=== PATIENT | male | born 1990 | race Two or more races ===

== ENCOUNTER 2017-08-11 08:42 | Day surgery (SDC) | payer OTHER ==
[~2017-08-11 08:42] MED LIST: HYDROmorphone 2 MG/ML VIAL IV; IV RINGERS,LACTATED 1000ML 1,000 ML IV; LIDOCAINE 1% PF 2 ML VIAL. ID; MORPHINE SULFATE 4 MG/ML DISP.SYRIN. IV; ONDANSETRON PF 4 MG/2 ML VIAL. IV; PROCHLORPERAZINE 10 MG/2 ML VIAL. IV; ceFAZolin 2GM PREMIX 2 GM/50 ML BAG IV; fentaNYL PF VIAL 100 MCG/2 ML VIAL IV
[2017-08-11] MEDS: IV RINGERS,LACTATED 1000ML 1,000 ML IV (09:24)
[2017-08-11] MEDS ORDERED: LIDOCAINE 1% PF 5 ML VIAL. (09:45)
[2017-08-11] MEDS ORDERED: PROPOFOL 20 ML IV (09:45)
[2017-08-11] MEDS ORDERED: ONDANSETRON PF 4 MG/2 ML VIAL. (09:45)
[2017-08-11] MEDS ORDERED: DEXAMETHASONE SOD PHOS 20 MG/5 ML VIAL. (09:45)
[2017-08-11] MEDS ORDERED: FAMOTIDINE 20 MG/2 ML VIAL (09:45)
[2017-08-11] MEDS ORDERED: fentaNYL PF VIAL 100 MCG/2 ML VIAL (09:50)
[2017-08-11] MEDS ORDERED: MIDAZOLAM HCL/PF 2 MG/2 ML VIAL. (09:51)
[2017-08-11] MEDS ORDERED: PHENYLEPHRINE in 0.9% NACL PF 1 MG/10 ML SYRINGE. IV (10:42)
[2017-08-11] MEDS ORDERED: SEVOFLURANE 61 TO 120 MINUTES. IH (11:18)
[2017-08-11] MEDS: oxyCODONE/APAP 5/325 1 TAB TABLET PO (12:13)
== END 2017-08-11 12:43 | disposition home or self-care (01) ==
LOC: SURG 08:42
DX: N62 Hypertrophy of breast (principal); Z83.3 Family history of diabetes mellitus; Z82.49 Family history of ischemic heart disease and other diseases of the circulatory system; Z87.891 Personal history of nicotine dependence; Z79.899 Other long term (current) drug therapy
CPT/HCPCS: 19300; 88305; J0690; J1100; J2250; J2370; J2405; J2704; J3010; J7120; S0028

== ENCOUNTER → 2018-06-24 | Outpatient (CLI) | payer OTHER ==
[2017-08-11 12:28] VITALS: BP 141/73
[~2018-06-24] MED LIST changes: -HYDROmorphone 2 MG/ML VIAL IV; +IBUP200T44 PO; -IV RINGERS,LACTATED 1000ML 1,000 ML IV; -LIDOCAINE 1% PF 2 ML VIAL. ID; -MORPHINE SULFATE 4 MG/ML DISP.SYRIN. IV; -ONDANSETRON PF 4 MG/2 ML VIAL. IV; +OXYC1TAB15 PO; -PROCHLORPERAZINE 10 MG/2 ML VIAL. IV; -ceFAZolin 2GM PREMIX 2 GM/50 ML BAG IV; -fentaNYL PF VIAL 100 MCG/2 ML VIAL IV
--- NOTE | 2018-06-24 13:08 | RAD ---
RIGHT BREAST SONOGRAPHY Clinical indications: Patient had removal of gynecomastia of the right breast in February 2018. No breast cancer by history. Now there is a palpable lump of the retroareolar area since the surgery. Findings: High-resolution sonography of the palpable lump of the retroareolar region at about the 3 clock position as indicated by the patient was performed. There is a subcutaneous heterogeneous solid nodule or complex hematoma measuring 11 mm x 6 mm x 9 mm in size. No internal color Doppler flow is seen within it. IMPRESSION: There is a 11 mm heterogeneous solid nodule (possibly representing a nodular scar) or complex hematoma of the retroareolar region of the right breast. This may be followed sonographically in 6 months. BI-RADS 3, probable benign finding. The patient information was entered into the data reminder system with a target due date for the next sonogram of December 22, 2018.
== END | disposition home or self-care (01) ==
LOC: US 12:04
PROVIDERS: ATTEND Surgery
DX: N62 Hypertrophy of breast (principal); N64.89 Other specified disorders of breast
CPT/HCPCS: 76641

== ENCOUNTER → 2019-05-31 | Outpatient (CLI) | payer OTHER ==
[2017-08-11 12:28] VITALS: BP 141/73
--- NOTE | 2019-05-31 16:44 | KCIC ---
Bilateral diagnostic digital mammograms: Reason for examination: Follow-up right breast lump. History of gynecomastia with surgery in February 2018.. Comparison is made to previous study dated 01/30/2015. Interpretation is made with the benefit of CAD. The skin and nipples show no abnormalities. No abnormal lymph nodes are seen. The breast parenchyma is predominantly fatty. (Breast density: Category A.) There are postop changes present in the right breast with no new cystic or solid nodules evident. Left breast shows no gynecomastia. There are no suspicious calcifications seen. Impression: Postoperative changes in the right breast. No evidence of malignancy. Ultrasound to follow. BI-RADS Category 0: Incomplete. Needs additional imaging evaluation. Right breast ultrasound: Comparison is made to previous study dated 06/24/2018. Ultrasound examination of the right breast and axilla was performed. In the retroareolar 3:00 position, there continues to be 9.2 mm isoechoic circumscribed lesion which probably represents fat necrosis. In the 12:00 position 2 cm from the nipple, there is a hypoechoic 5.3 mm lesion in parallel orientation also probably representing some fat necrosis. No suspicious-appearing lesions are seen. No abnormal appearing lymph nodes are seen in the axilla. IMPRESSION: Isoechoic lesion at the 3:00 retroareolar position and small hypoechoic lesion at the 12:00 position. This probably reflects fat necrosis. Recommend reevaluation with ultrasound in 6 months. BI-RADS Category 3: Probably Benign. "Our facility is accredited by the [employer] Mammography [employer]." This patient's information has been entered into a reminder system for the patient to be notified with the results of her examination and a target date for the next mammogram. Electronically signed by: Soraya Hirsch MD (05/31/2019 4:41 PM) [id number]
== END | disposition home or self-care (01) ==
LOC: KCIC US 12:45
PROVIDERS: ATTEND Surgery
DX: N64.89 Other specified disorders of breast (principal)
CPT/HCPCS: 76641; 77066

== ENCOUNTER → 2021-06-04 | Outpatient (CLI) | payer OTHER ==
[2017-08-11 12:28] VITALS: BP 141/73
--- NOTE | 2021-06-04 12:10 | RAD ---
EXAM: Right breast sonogram. HISTORY: 31-year-old male presents for follow-up evaluation of findings within the right breast. The patient underwent resection of gynecomastia in 2018. TECHNIQUE: Sonographic imaging of the right breast including all 4 quadrants and the retroareolar reg ion was performed. COMPARISON: 05/31/2019, 06/24/2018, 01/30/2015. FINDINGS: There is a circumscribed nonvascular hypoechoic lesion at the 11:00 position 2 cm for the n ipple measuring 1.1 cm in maximum dimension. This is nearly identical in appearance to a lesion at th e 3:00 position demonstrated on sonograms performed 05/31/2019 and 06/24/2018. The previously demonstrat ed hypoechoic lesion at the 12:00 position 2 cm from nipple is no longer seen. There is no suspicious axillary lymph node. IMPRESSION: 1. 1.1 cm circumscribed nonvascular hypoechoic lesion at the 11:00 position 2 cm from the nipple, miller rly identical in appearance to a previously demonstrated lesion at the 3:00 position. This may repres ent the same lesion in a different location due to differences in imaging technique or interval surge ry. The sonographic appearance favors a benign etiology such as fat necrosis. 2. No sonographic correlate for a previously demonstrated lesion at the 12:00 position. 3. BI-RADS Category 3: Probably benign finding(s). Continued clinical follow-up of palpable abnormali ties and precautionary short term follow up with a right breast sonogram in 6 months is recommended. Electronically signed by: Abby Sauer MD (06/04/2021 12:08 PM) [id number]
== END ==
LOC: US 12:34
PROVIDERS: ATTEND Surgery
DX: N64.89 Other specified disorders of breast (principal)
CPT/HCPCS: 76641